=== PATIENT | female | born 1985 | race Caucasian/White ===

== ENCOUNTER → 2024-11-29 | Outpatient (CLI) | payer OTHER, SELFPAY ==
[2024-12-05 12:07] LABS: HPV APTIMA, High Risk Negative (Negative)
== END | disposition home or self-care (01) ==
PROVIDERS: Visit Provider Advanced Practice Midwife
DX: Z12.4 Encounter for screening for malignant neoplasm of cervix (principal)
CPT/HCPCS: 87624; 88175; G0145

== ENCOUNTER → 2024-12-25 | Outpatient (CLI) | payer SELFPAY, OTHER ==
--- NOTE | 2024-12-25 12:09 | US_ITS ---
PROCEDURE: PELVIC W/ TRANSVAGINAL REASON FOR EXAM: Pelvic pain. LMP: November 30, 2024. TECHNIQUE: Transabdominal and transvaginal pelvic ultrasound COMPARISON: None. FINDINGS: Measurements: Uterus: 9.8 cm x 7 cm x 5.6 cm with a volume of 203 mL Endometrial Thickness: 17 mm. Hyperechoic. Right Ovary: 3.3 cm x 2.2 cm x 1.8 cm with a volume of 6.84 mL. Left Ovary: 3.3 cm x 1.9 cm x 2.1 cm with a volume of 6.74 mL. 1.5 cm x 1.8 cm x 1.6 cm follicle. TRANSABDOMINAL: Uterus: Normal size, myometrial echotexture, and contour. Nabothian cyst. Endometrium: Endometrium thickening. Right ovary: Normal size and echotexture. Left ovary: 1.5 cm x 1.8 cm x 1.6 cm follicle. No large pelvic mass identified. Transvaginal sonography was performed to better visualize the endometrium. TRANSVAGINAL: Uterus: Anteverted. Normal contour and myometrial echotexture. Endometrium: Normal echotexture. Right ovary: Normal size and echotexture. Left ovary: 1.5 cm x 1.8 cm x 1.6 cm follicle. Other adnexal findings: None. Cul-de-sac: No free intraperitoneal fluid identified. No tenderness. US/Pelvic w/ Transvaginal IMPRESSION: Small follicle in the left ovary. The endometrium is thickened and measures 17 mm. Reading Location: [id number]
== END | disposition home or self-care (01) ==
PROVIDERS: PCP Family Medicine; Referring Provider Nurse Practitioner Women's Health; Visit Provider Nurse Practitioner Women's Health
DX: R10.2 Pelvic and perineal pain (principal); N81.9 Female genital prolapse, unspecified
CPT/HCPCS: 76830; 76856

== ENCOUNTER → 2025-02-02 | Outpatient (CLI) | payer OTHER, SELFPAY ==
--- NOTE | 2025-02-02 14:15 | EMB_PTH ---
PATIENT: PRASAD ANN LOC: [facility] U#:[id number] AGE/SX: 39/F ROOM: RE02/02/[address]: Dr. Sheyla Blas DO : 1985 BED: DIS: 02/02/2025 SPEC #: [id number] RECD: 02/05/25 08:29 STATUS: NOEL RERajat #: [id number] NADIRA: 02/02/25 14:[address]: Sheyla Blas DEPT: SURGICAL PATHOLOGY RECD BY: Nahid Graves ENTERED: 02/05/25 08:29 SP TYPE: ENDOM BX/C SCOTT DR: Dr. Arturo Ivory MD Tissues: A - Endometrium, NOS Procedures: Surgery Specimen Level IV HEADER OPERATION: Endometrial biopsy PRE-OP DIAGNOSIS: Thickened endometrium TISSUE SUBMITTED: A- Endometrial lining MICROSCOPIC DIAGNOSIS A. Uterus, endometrial lining, biopsy: * Proliferative phase. MICROSCOPIC DESCRIPTION Slides are reviewed. GROSS DESCRIPTION A. Received in formalin in a container labeled with the patient's name, date of , and with no further designation are multiple millard-pink fragments of soft tissue admixed with a scant amount blood and mucus measuring 2.2 x 1.3 x 0.3 cm in aggregate. Submitted in toto in A1. SMB 02/09/2025 CPT:22519
== END | disposition home or self-care (01) ==
LOC: LABSPEC 14:41
PROVIDERS: PCP Family Medicine; Referring Provider Obstetrics & Gynecology; Visit Provider Obstetrics & Gynecology
DX: R93.89 Abnormal findings on diagnostic imaging of other specified body structures (principal)
CPT/HCPCS: 88305